=== PATIENT | female | born 1960 | race Caucasian/White ===

== ENCOUNTER 2018-12-11 23:31 | Emergency (ER) | payer OTHER ==
[~2018-12-11] VITALS: Ht 167.6 cm; Wt 72.7 kg
[2018-12-11 23:34] VITALS: BP 192/98
[2018-12-12 00:30] LABS: CLARITY,URINE CLEAR (Clear); COLOR,URINE STRAW (Yellow); GLUCOSE, URINE NEGATIVE (Neg); KETONES,URINE NEGATIVE (Neg); LEUKOCYTE ESTERASE ,URINE SMALL (Neg); NITRITES, URINE NEGATIVE (Neg); OCCULT BLOOD,URINE NEGATIVE (Neg); PROTEIN,URINE NEGATIVE (Neg); UROBILINOGEN,URINE 0.2 E.U/dL (0.2-1.0)
[2018-12-12 00:31] LABS: UA COLLECTION TYPE VOIDED
[2018-12-12 00:44] LABS: BACTERIA,URINE NONE SEEN /HPF (Neg); MUCUS STRANDS NONE SEEN /LPF (Neg); RBC,URINE NONE SEEN /HPF (0-2); SQUAMOUS EPITHELIAL CELL,UR FEW /LPF (FEW); WBC,URINE 0-4 /HPF (0-4)
[2018-12-12] MEDS ORDERED: CARV6.253 PO (14:42)
[2018-12-12] MEDS ORDERED: POTA20TA19 PO (14:42)
[2018-12-12] MEDS ORDERED: HYDR25TA4 PO (14:42)
[2018-12-12] MEDS ORDERED: LAMO25TA5 PO (14:42)
[2018-12-12] MEDS ORDERED: LAMO200T PO (14:42)
[2018-12-12] MEDS ORDERED: SUCR1TAB PO (14:42)
[2018-12-12] MEDS ORDERED: HYDR-3968 PO (14:42)
== END 2018-12-12 00:54 | disposition left against medical advice (07) ==
LOC: ER 23:33
DX: R56.9 Unspecified convulsions (principal)
CPT/HCPCS: 81001; 87088; 99283

== ENCOUNTER 2018-12-12 10:04 | Emergency (ER) | payer SELFPAY ==
[~2018-12-12] VITALS: Ht 170.2 cm; Wt 86.4 kg
--- NOTE | 2018-12-12 10:25 | NUR ---
SEEN BY ANANDA SPEARS AND CLEARED OF C-SPINE PRECAUTIONS. CERVICAL COLLAR REMOVED.
--- NOTE | 2018-12-12 10:45 | NUR ---
SISTER, SANDY TRIPATHI HERE AND LEFT CONTACT NUMBER ROOMMATE, ADRIANA ELMORE HERE AND LEFT HIS CONTACT NUMBER DAUGHTER, ROBBY TRIPATHI CONTACT INFORMATION IS
[2018-12-12 11:00] LABS: BASOPHILS # (AUTO) 0.1 X10'3 (0-0.2); BASOPHILS % (AUTO) 0.9 % (0-1); EOSINOPHILS # (AUTO) 0.4 X10'3 (0-0.9); EOSINOPHILS % (AUTO) 4.8 % (0-6); HEMATOCRIT 42.1 % (35.0-45.0); LYMPHOCYTES # (AUTO) 2.8 X10'3 (1.1-4.8); LYMPHOCYTES % (AUTO) 29.6 % (21-51); MEAN CORPUSCULAR HEMOGLOBIN 29.9 PG (27.0-31.0); MEAN CORPUSCULAR HGB CONC 33.2 g/dL (33.0-36.5); MEAN CORPUSCULAR VOLUME 90.2 FL (78-98); MEAN PLATELET VOLUME 9.2 FL (7.4-10.4); MONOCYTES # (AUTO) 0.5 X10'3 (0-0.9); MONOCYTES % (AUTO) 5.1 % (2-12); NEUTROPHILS # (AUTO) 5.6 X10'3 (1.8-7.7); NEUTROPHILS % (AUTO) 59.6 % (42-75); PLATELET COUNT 315 X10'3 (140-440); RED BLOOD COUNT 4.67 X10'6 (4.20-5.60); RED CELL DISTRIBUTION WIDTH 14.6 % (11.5-14.5); WHITE BLOOD COUNT 9.4 X10'3 (4.5-11.0)
[2018-12-12 11:09] LABS: ALANINE AMINOTRANSFERASE 28 U/L (12-78); ALBUMIN 3.7 G/DL (3.4-5.0); ALKALINE PHOSPHATASE 80 IU/L (46-116); ANION GAP 11 (8-16); ASPARTATE AMINO TRANSFERASE 28 U/L (10-37); BILIRUBIN,TOTAL 0.4 MG/DL (0.1-1.0); BLOOD UREA NITROGEN 10 MG/DL (7-18); BUN/CREATININE RATIO 13.7 (6.6-38.0); CALCIUM 8.2 MG/DL (8.5-10.1); CHLORIDE 105 MMOL/L (99-107); CREATININE 0.73 MG/DL (0.40-0.90); GLUCOSE 100 MG/DL (70-104); POTASSIUM 3.4 MMOL/L (3.5-5.1); SODIUM 142 MMOL/L (135-145); TOTAL CARBON DIOXIDE 26.1 MMOL/L (24-32); TOTAL PROTEIN 7.5 G/DL (6.4-8.2); eGFR 82 ML/MIN
[2018-12-12 11:12] LABS: URINE AMPHETAMINE SCREEN NEGATIVE (Neg); URINE BARBITUATE SCREEN NEGATIVE (Neg); URINE BENZODIAZEPINES SCREEN NEGATIVE (Neg); URINE CANNABINOID SCREEN NEGATIVE (Neg); URINE COCAINE SCREEN NEGATIVE (Neg); URINE METHADONE SCREEN NEGATIVE (Neg); URINE OPIATE SCREEN NEGATIVE (Neg); URINE PHENCYCLIDINE SCREEN NEGATIVE (Neg)
[2018-12-12 11:27] LABS: CLARITY,URINE SLIGHTLY CLOUDY (Clear); COLOR,URINE YELLOW (Yellow); GLUCOSE, URINE NEGATIVE (Neg); KETONES,URINE NEGATIVE (Neg); LEUKOCYTE ESTERASE ,URINE LARGE (Neg); NITRITES, URINE NEGATIVE (Neg); OCCULT BLOOD,URINE NEGATIVE (Neg); PROTEIN,URINE NEGATIVE (Neg); UROBILINOGEN,URINE 0.2 E.U/dL (0.2-1.0)
[2018-12-12 11:31] LABS: UA COLLECTION TYPE VOIDED
[2018-12-12 11:36] LABS: BACTERIA,URINE 3+ /HPF (Neg); RBC,URINE 0-2 /HPF (0-2); SQUAMOUS EPITHELIAL CELL,UR MANY /LPF (FEW)
--- NOTE | 2018-12-12 12:30 | NUR ---
TC FROM DAUGHTERROBBY FOR CONDITION REPORT. DAUGHTER IS ON HER WAY HERE FROM [place], [place].
--- NOTE | 2018-12-12 12:45 | NUR ---
TRANSFERRED TO ER OVERFLOW ROOM #21. REPORT TO JOSE JAVIER.
--- NOTE | 2018-12-12 12:46 | NUR ---
BED MOVED FROM BED 7 TO BED 21
--- NOTE | 2018-12-12 13:50 | NUR ---
DISCUSSED WITH REGAN MALAVE AND KEELEY MCGEE, PT STATUS OF INTOXICATION, SOME CONFUSION AND WANTING TO LEAVE, ALSO DISCUSSED PT VISIT TO ED YESTERDAY AND DISCUSSION OF SEIZURE AND HITTING HEAD ON FLOOR OF SENIOR LIVING YESTERDAY WELL BEING FOUND UNRESPONSIVE WITH DIGITAL CONTENT MARKETING MANAGER CORD WRAPPED AROUND NECK TWICE BUT WHEN CORDS REMOVED SHE RESUMED BREATHING, PT FOUND BY [employer] OF HER MOTEL SHE IS STAYING IN, PT LIVES IN [place] AND DAUGHTER IS COMING, PT REPORTS SHE DOES NOT WANT TO SEE HER DAUGHTER, [facility] PHARMACIST IS TO CALL [facility] TO UPDATE PT MED REC, PLACED PT ON MONITOR IN ED OVERFLOW BED 21.
--- NOTE | 2018-12-12 14:20 | NUR ---
PT TO CT VIA WHEELCHAIR PER ORDERS WITH JUANA WELCH SITTER AND SECURITY DUE TO PT ELOPEMENT STATUS.
--- NOTE | 2018-12-12 14:28 | NUR ---
PT IS BACK FROM [place] DAUGHTER AND OTHER MALE VISITOR MET PT ON WAY BACK FROM CT AND ARE AT BEDSIDE NOW. CALLED DANNY TO COME TO PT BEDSIDE TO COMPLETE MED REC, PT STATES SHE CHEWS TOBACCO AND REQUESTING NICOTINE LONZANGE, CALLED PHARMACY AND WE HAVE LOZANGE, WILL GET ORDER FROM REGAN MALAVE.
[2018-12-12] MEDS ORDERED: HYDR25TA4 PO (14:42)
[2018-12-12] MEDS ORDERED: HYDR-3968 PO (14:42)
[2018-12-12] MEDS ORDERED: CARV6.253 PO (14:42)
[2018-12-12] MEDS ORDERED: LAMO200T PO (14:42)
[2018-12-12] MEDS ORDERED: LAMO25TA5 PO (14:42)
[2018-12-12] MEDS ORDERED: POTA20TA19 PO (14:42)
[2018-12-12] MEDS ORDERED: SUCR1TAB PO (14:42)
--- NOTE | 2018-12-12 14:53 | NUR ---
PT IS TEARFUL AND REPORTS RECOVERY ALCOHOLIC ONLY DRINK 05/2017 AND 12/11/2018, PT HX OF SEIZURE YESTERDAY AND PRIOR TO THAT LAST SEIZURE APPROX 3 YEARS AGO, PT REPORT EPILIPSY AND DOES NOT HAVE DL, PT STATES COULD HAVE GOTTEN LICENSE BACK BUT NEVER WENT TO [facility], WHEN ASKED IF HAVING SI PT DENIES BUT THEN STATES "I JUST DON'T WANT TO BE HERE, IF THAT MAKES SENSE" "I'M TIRED OFF ALL THIS STUFF" "IF I HAD A GUN I WOULD HAVE DONE IT LAST NIGHT" PT REPORTS "ONE OF BY VETERANS JUST KILLED HIMSELF AT AGE 30" PT DENIES HX OF DEPRESSION BUT REPORTS IN THE 80S/90S SHE WAS ON [place] FOLLOWING A HYSTERECTOMY, PT HAS RED STALLINGS CIRCUMFIRENTIAL NECK, PT DOES NOT REMEMBER STRANGLING HERSELF, PT REPORTS 7/10 HEADACHE PAIN ON TOP OF HEAD, AND ALSO REPORTS UPPER BACK PAIN CHRONIC IN NATURE / PT REPORT "IF I HAD ONE OF MY NORCO I WOULD TAKE IT"
--- NOTE | 2018-12-12 15:08 | NUR ---
RECEIVED VERBAL ORDER FROM REGAN MALAVE FOR 650MG PO TYLENOL DUE TO POWELL AND UPPER BACK PAIN, ALSO VERBAL ORDER NICOLTINE WILTONZANGES Q2 HOUR PRN PT CHEWS TOBACCO.
[2018-12-12] MEDS ORDERED: acetaminophen 325mg tablet PO ONE (15:10)
--- NOTE | 2018-12-12 15:13 | NUR ---
PT DAUGHTER LEFT BEDSIDE TO GOT TO HER HOTEL, GET PHONE WARDROBE MISTRESS AND WILL THE RETURN, INFORMED OF VISITING HOUR [id number], PT AMBUALTORY TO THE BATHROOM WITH A STEADY GAIT.
[2018-12-12] MEDS ORDERED: HYDROchlorothiazide 25mg tablet PO ONE (15:25)
[2018-12-12] MEDS ORDERED: carvedilol 6.25mg tablet PO SCH (15:25)
[2018-12-12] MEDS ORDERED: carvedilol 6.25mg tablet PO ONE (15:25)
--- NOTE | 2018-12-12 15:26 | NUR ---
CALLED PHARMACY AND WAS INSTRUCTED TO ORDER COREG AND HCTZ ONCE ONE AND THEN NON ADMIN 2000 DOSE OF COREG.
[2018-12-12] MEDS: NICOTINE POLACRILEX 2 MG LOZENGE BC PRN ×3 (15:39→19:14)
[2018-12-12] MEDS: carvedilol 6.25mg tablet PO SCH ×2 (16:51→20:26)
--- NOTE | 2018-12-12 17:01 | NUR ---
PT DAUGHTER RETURNED TO BEDSIDE, PT SITTING UP TALKING WITH DAUGHTER NOW, PT IS SMILING AND APPEARS TO BE IN BETTER SPIRITS.
[2018-12-12] MEDS: sucralfate 1 gm tablet PO SCH ×2 (17:13→20:26)
--- NOTE | 2018-12-12 17:17 | NUR ---
MEDICATED PT WITH CARAFATE, AND NICOTINE LOZENGE PER ORDERS, PT IS SITTING UP TALKING WITH DAUGHTER AT BEDSIDE.
--- NOTE | 2018-12-12 17:54 | NUR ---
PT IS CONTINUING TO HAVE PAIN, RECEIVED VERBAL ORDER TO CONTINUE PT HOME MED HYDROCODONE/ACETAMINOPHEN 7.5/325 MG 2 TABS Q 6 HOUR PRN PAIN, TABS NOT AVAILABLE ONLY ELIXER, PT OK WITH ELIXER 7.5/325 IN 15 ML ORDER FOR 30ML Q 6 HOURS PRN PAIN
[2018-12-12] MEDS ORDERED: HYDROcodone/acetaminophen 7.5MG/325MG per 15ml UD CUP ONE (18:03)
--- NOTE | 2018-12-12 18:30 | NUR ---
Assumed care of patient, pt currently sitting up in bed conversing with her daughter. 1:1 assessment completed, pt is experiencing some neck pain at this time around her ligature doyle. Motrin 600mg PO was given along with a nicotine NARAYAN.
--- NOTE | 2018-12-12 19:00 | NUR ---
PT had head CT and Cervical spine CT completed on day shift, results are unremarkable. Upon assessment patient's central anterior thoracic region is ecchymotic, Brian consulted immediately, assessed pt at bedside and advised to keep minotoring area.
[2018-12-12] MEDS ORDERED: non-formulary drug (Lamotrigine 1 TAB) PO SCH (20:00)
[2018-12-12] MEDS ORDERED: ibuprofen 200mg tablet PO ONE (20:15)
[2018-12-12] MEDS: lamoTRIgine 25mg tablet PO SCH (20:16)
[2018-12-12] MEDS: lamoTRIgine 100mg tablet PO SCH (20:16)
--- NOTE | 2018-12-12 21:00 | NUR ---
Patient was given HS medications, pt compliant. She requests and sandwhich and juice which was given to her. 100% of juice drank, 75% of sandwhich eaten. Pt denies feeling suicidal at this time, but admits she is "very depressed." Pt has a flat affect and avoids direct eye contact.
--- NOTE | 2018-12-12 23:00 | NUR ---
PT is resting on L side RR14, even unlabored breaths. No signs or symptoms of distress at this time.
[2018-12-13] MEDS ORDERED: HYDROcodone/acetaminophen 7.5MG/325MG per 15ml UD CUP ONE (00:55)
[2018-12-13] MEDS: NICOTINE POLACRILEX 2 MG LOZENGE BC PRN ×3 (00:58→09:07)
--- NOTE | 2018-12-13 01:00 | NUR ---
Patient states that she is having pain around her neck and requests her PRN hydrocodone 7.5/325 mg and a nicotine maryjo. Pharmacist had to override the hydrocodone 7.5/325 oral solution in the pyxis because it kept sending aprompt that the medication was not there. An automatic override order was non administered on the Emar due to the issue and the "PRN Q6H" dose was administered.Medications were taken without issue.
--- NOTE | 2018-12-13 01:45 | NUR ---
Pt alerts staff that the center of her chest where the ecchymosis appears "aches constantly" at an 8/10 and does not increase or decrease with movement. MD Fitzgerald notified immediately, 12 lead EKG ordered and completed, and Troponins were drawn at 0140. EKG was unremarkable. MD did a bedside assessment of the area.
--- NOTE | 2018-12-13 02:00 | NUR ---
TROPININ NEGATIVE. Truss Assembler verified with MD that only one tropinin was to be drawn.
--- NOTE | 2018-12-13 04:00 | NUR ---
Pt resting quietly in bed RR 18. She occasionally wakes up, drinks water and reads a book for a few minutes before laying back down.
--- NOTE | 2018-12-13 05:10 | NUR ---
Pt is asleep resting on R side. RR 16 unlabored breathing. No signs or symptoms of distress
[2018-12-13] MEDS: sucralfate 1 gm tablet PO SCH ×4 (07:00→20:13)
[2018-12-13] MEDS: ibuprofen 200mg tablet PO PRN ×3 (07:00→20:13)
--- NOTE | 2018-12-13 07:00 | NUR ---
PT IS AWAKE ASKING FOR IBUPROFEN FOR PAIN 01/04, RECEIVED VERBAL ORDER FROM DR BAKER 600MG PO Q6 HOUR PRN PAIN ALTERNATE WITH HYDROCODONE. PT ALSO ASKING FOR NICOTINE LOZENGE
--- NOTE | 2018-12-13 07:08 | NUR ---
MEDICATED PT WITH CARAFATE, IBUPROFEN AND NICOTINE LOZENGE PER ORDERS.
[2018-12-13] MEDS: carvedilol 6.25mg tablet PO SCH ×3 (08:00→20:13)
[2018-12-13] MEDS: lamoTRIgine 25mg tablet PO SCH ×3 (08:00→20:14)
[2018-12-13] MEDS: HYDROchlorothiazide 25mg tablet PO SCH ×2 (08:00→08:15)
[2018-12-13] MEDS: lamoTRIgine 100mg tablet PO SCH ×3 (08:00→20:14)
[2018-12-13] MEDS: potassium Cl 20 mEq SR tablet PO SCH ×2 (08:00→08:15)
[2018-12-13] MEDS: HYDROcodone/acetaminophen 7.5MG/325MG per 15ml UD CUP PO PRN ×4 (08:15→20:15)
--- NOTE | 2018-12-13 08:22 | NUR ---
ADMINISTERED PT COREG, HCTZ, LAMICTAL AND K-DUR, PT REPORTS THE POTASSIUM "GAGGED ME" PT VOMITTING UP ALL MEDICATIONS, HAD SCANNED HYDROCODONE BUT DID NOT ADMINISTER, UNDONE TO ALL MEDICATIONS, CALLED DR BAKER RECEIVED VERBAL ORDER FOR 4 MG ZOFRAN ODT, CALLED PHARMACY TO HAVE THE MEDICATIONS DISPENSED AND ED SITTER WILL GO GET MEDICATIONS FROM PHARMACY
[2018-12-13] MEDS ORDERED: potassium Cl 20 mEq SR tablet PO ONE (08:30)
[2018-12-13] MEDS ORDERED: lamoTRIgine 25mg tablet PO ONE (08:30)
[2018-12-13] MEDS ORDERED: sucralfate 1 gm tablet PO ONE (08:30)
[2018-12-13] MEDS ORDERED: ondansetron 4mg rapidly disintigrating tab PO ONE (08:30)
[2018-12-13] MEDS ORDERED: HYDROchlorothiazide 25mg tablet PO ONE (08:30)
[2018-12-13] MEDS ORDERED: carvedilol 6.25mg tablet PO ONE (08:30)
[2018-12-13] MEDS ORDERED: lamoTRIgine 100mg tablet PO SCH (08:45)
[2018-12-13] MEDS ORDERED: lamoTRIgine 100mg tablet PO ONE (08:45)
--- NOTE | 2018-12-13 10:35 | NUR ---
Spoke with Dr. Alonso regarding nicotine cravings not being curbed by lozenges and possible need for nicotine patch, Patient normally chews a can of tobacco over a [address] alonso stated to DC lozenges and add nicotine patch 14 mg topical once daily.
--- NOTE | 2018-12-13 10:36 | NUR ---
Destiny GARCIA aware of new order.
[2018-12-13] MEDS: nicotine 14mg patch - 24hr TD SCH (10:55)
--- NOTE | 2018-12-13 11:38 | NUR ---
CHAPARRO WITH [facility] CALLED, GAVE REPORT, SHE IS FAXING A ETOH QUESTIONAIRE TO BE COMPLETED AND THEN FAXED BACK WITH CT HEAD AND NECK REPORT TO F# [phone], SBAR REPORT OFF TO KULWINDER WHO WILL COMPLETE QUESTIONAIRE AND FAX INFO BACK TO KELLEN AT [facility].
--- NOTE | 2018-12-13 12:00 | NUR ---
PATIENT APPROPRIATE AFFECT RANDY, SPOKE ABOUT HER SOBRIETY AND PREVIOUS RELAPSES. PATIENT HAS HAD 2 THIRTEEN YEAR STRETCHES OF SOBRIETY FROM ETOH. BOTH RELAPSES HAPPENED WHEN SHE STOPPED GOING TO AA MEETINGS AND DISTANCED HERSELF FROM THE AA PROGRAM WHICH SHE SAYS SHE DID THIS TIME WELL. PATIENT STATED THAT HER TRIGGER WAS THE SUICIDE OF A COWORKER WHO WAS A WITH WHOM SHE WORKED FOR 3 YEARS AT [employer] IN [place] WHERE SHE CURRENTLY WORKS.
[2018-12-13] MEDS ORDERED: NICOTINE POLACRILEX 2 MG LOZENGE BC ONE (12:40)
--- NOTE | 2018-12-13 14:37 | NUR ---
DAUGHTER ROBBY [phone] AT BEDSIDE, FRIENDLY, APPROPRIATE INTERACTION WITH MOTHER PATIENT AND DAUGHTER AMBULATED ABOUT 12 TIMES AROUND UNIT TO HELP WITH PATIENT'S ACHING HIPS PER PATIENT: SHE WAS DIAGNOSED WITH LYME'S DZ IN 1998 WHICH HAS RESULTED IN HIP PAIN
--- NOTE | 2018-12-13 15:05 | NUR ---
PATIENT WALKED UP WNL TO NURSES STATION RUBBING LEFT HIP AND ASKED FOR HER PAIN MEDICATION
--- NOTE | 2018-12-13 15:13 | NUR ---
SPEAKING TO PHARMACIST ON THE PHONE: ATTEMPTING TO ADMINISTER HYDROCODONE/ ACETAMINOPHEN 7.5MG/325MG AFTER SCANNING THE PATIENT, I SCAN THE MEDICATION BAR CODE AND RECEIVE THE FOLLOWING WARNING "MEDICATION STATUS IS "DISCONTINUED" CONTINUE TO ADMIN BY SCHEDULE?" THE NEXT PAGE IS A LIST OF 4 SCHEDULED TIMES WHICH ARE THE SAME DATE AND TIME, THEN I WAS TOLD BY CARTER TO CLICK YES, THEN A MESSAGE BOX COMES UP THAT SAYS "MEDICATION STATUS IS "DISCONTINUED" CONTINUE ANYWAY?" IT APPEARS THE ISSUE IS FIXED AND THE LORTAB ELIXIR SCANNED
--- NOTE | 2018-12-13 16:51 | NUR ---
KELLEN CALLED FROM [facility]. [facility] WILL BE REASSESSING THE PATIENT ON 12/15/18 TO ENSURE THAT THE PATIENT DOES NOT HAVE WITHDRAWALS. I DISCUSSED THE FACT THAT THE PATIENT HAS NOT BEEN DRINKING DAILY. KELLEN STATED THAT SINCE THE PATIENT HAS A HISTORY OF SEIZURES, [facility] "WANTS TO ERR ON THE SIDE OF CAUTION"
--- NOTE | 2018-12-13 16:58 | NUR ---
PATIENT SITTING UP IN BED AND READING A BOOK
--- NOTE | 2018-12-13 17:23 | NUR ---
PATIENT STATES THAT SHE IS ANXIOUS ABOUT GETTING PLACED IN A FACILITY. MANY OTHER PATIENTS HAVE LEFT FOR INPATIENT TREATMENT TODAY. SULTANA BEDOYA INFORMED OF BLOOD PRESSURE; WILL RETAKE
--- NOTE | 2018-12-13 17:45 | NUR ---
PATIENT WALKED ABOUT 15 LAPS WITH DAUGHTER
--- NOTE | 2018-12-13 20:24 | NUR ---
This patient visited with her adult daughter. The daughter left at 2000 hours. This patient complains of her chronic back and hip pain. PO pain medications given. Patient is now reading quietly. Her nicotine patch has been removed and disposed of in the proper safety container. Patient is assured that she is in a safe place. Q15 minute rounding is being done for patient safety. Patient bed is in view from the nursing station.
--- NOTE | 2018-12-14 01:30 | NUR ---
Patient ambulates to bathroom without problem. Returns to bed without incident.
[2018-12-14] MEDS: ibuprofen 200mg tablet PO PRN ×2 (02:32→08:20)
[2018-12-14] MEDS: HYDROcodone/acetaminophen 7.5MG/325MG per 15ml UD CUP PO PRN ×2 (02:40→08:26)
--- NOTE | 2018-12-14 03:18 | NUR ---
Patient awoke complaining of her chronic back and hip pain. Hydrocodone elixor was given, motrin too. Patient returned to sleep.
--- NOTE | 2018-12-14 06:16 | NUR ---
PT AWAKE. LAYING IN BED
[2018-12-14] MEDS ORDERED: nicotine 14mg patch - 24hr TD ONE (08:00)
[2018-12-14] MEDS: HYDROchlorothiazide 25mg tablet PO SCH (08:20)
[2018-12-14] MEDS: lamoTRIgine 100mg tablet PO SCH (08:20)
[2018-12-14] MEDS: lamoTRIgine 25mg tablet PO SCH (08:20)
[2018-12-14] MEDS: nicotine 14mg patch - 24hr TD SCH (08:20)
[2018-12-14] MEDS: potassium Cl 20 mEq SR tablet PO SCH (08:20)
[2018-12-14] MEDS: carvedilol 6.25mg tablet PO SCH (08:26)
[2018-12-14] MEDS: sucralfate 1 gm tablet PO SCH ×2 (08:29→12:32)
[2018-12-14] MEDS ORDERED: ondansetron 4mg rapidly disintigrating tab PO ONE (09:50)
[2018-12-14 14:05] VITALS: BP 144/86
== END 2018-12-14 14:07 | disposition home or self-care (01) ==
LOC: ER 10:04
DX: T14.91XA Suicide attempt, initial encounter (principal); F32.9 Major depressive disorder, single episode, unspecified; F10.920 Alcohol use, unspecified with intoxication, uncomplicated; I10 Essential (primary) hypertension; X83.8XXA Intentional self-harm by other specified means, initial encounter; Y93.89 Activity, other specified; Y92.89 Other specified places as the place of occurrence of the external cause; Y99.8 Other external cause status; Y90.0 Blood alcohol level of less than 20 mg/100 ml
CPT/HCPCS: 36415; 70450; 72125; 80053; 80305; 80320; 81001; 84443; 84484; 85025; 93005; 99285